=== PATIENT | female | born 1955 | race Caucasian/White ===

== ENCOUNTER 2019-10-10 09:53 | Emergency (ER) | payer MEDICARE, OTHER ==
[~2019-10-10] VITALS: Ht 170.2 cm; Wt 77.2 kg
[~2019-10-10 09:53] MED LIST: ATOR10TA60 PO; CETI10TA24 PO; FLUT9.9S NS; LISI-338 PO; LOTE5DRO2 EACHEYE; MELO7.5T5 PO; PRED20TA PO
[2019-10-10 10:15] VITALS: BP 174/95
[2019-10-10] MEDS ORDERED: ONDANSETRON PF 4 MG/2 ML VIAL. IM ONE (10:15)
--- NOTE | 2019-10-10 10:20 | PHYS DOC ---
Past History Past Medical History: Hypertension Past Surgical History: Tonsillectomy Smoking: Non-smoker Alcohol Use: None Drug Use: None Adult General Chief Complaint Chief Complaint: NAUSEA/VOMITING/DIARRHEA HPI HPI Patient is a 63-year-old female who presents for nausea. Onset was 2 weeks ago and has been fluctuant since onset. No inciting trauma or event. Nothing known makes it better or worse. Patient denies any pain. Patient reports stomach feeling uneasy and nauseous but denies any episodes of vomit or diarrhea in the past 7 days. Patient reports she is in the middle of an extensive outpatient work-up for headaches and vision changes, she is pending MRI on Saturday and this makes her nervous. She is not having any headaches or vision changes currently but is anxious to find out what has been going on with her. She was recently prescribed Phenergan with moderate relief in symptoms, she has been taking these as needed for nausea with moderate relief but today, after taking a Phenergan this morning, remained nauseous and anxious about her health status prompting her to seek care at our ED today Review of Systems Review of Systems Fourteen body systems of review of systems have been reviewed. See HPI for pertinent positives and negative responses, other martinez all other systems are negative, non-pertinent or non-contributory Positive nausea, recent history of vision changes and headache Denies febrile illness, URI-like symptoms, cough, shortness of breath, abdominal pain, vomiting or diarrhea, urinary symptoms, changes in bladder or bowel function, recent antibiotic use Allergies Allergies Allergies Coded Allergies Type Severity Reaction Last Updated Verified No Known Drug Allergies 05/06/15 No Physical Exam Physical Exam Constitutional: Well developed, well nourished, mild distress, non-toxic appearance. [] HENT: Normocephalic, atraumatic, bilateral external ears normal, oropharynx femi st, no oral exudates, nose normal. [] Eyes: PERRLA, EOMI, conjunctiva normal, no discharge. [] Neck: Normal range of motion, no tenderness, supple, no stridor. [] Cardiovascular:Heart rate regular rhythm, no murmur [] Lungs & Thorax: Bilateral breath sounds clear to auscultation [] Abdomen: Bowel sounds normal, soft, no tenderness, no masses, no pulsatile masses. No guarding, rebound, peritoneal signs. Nonacute abdomen [] Skin: Warm, dry, no erythema, no rash. [] Back: No tenderness, no CVA tenderness. [] Extremities: No tenderness, no cyanosis, no clubbing, ROM intact, no edema. [] Neurologic: Alert and oriented X 3, normal motor function, normal sensory function, no focal deficits noted. [] Psychologic: Affect normal, judgement normal, mood normal. [] EKG EKG EKG obtained and interpreted by myself at 1045 hrs. as normal sinus rhythm at 70 bpm, unremarkable intervals, left axis deviation, no acute ischemic findings, no STEMI Radiology/Procedures Radiology/Procedures [] Course & Med Decision Making Course & Med Decision Making Patient seen on immediate ED arrival Hemodynamically stable, comprehensive history and physical exam grossly benign for any emergent conditions No indication for extensive laboratory analysis or imaging, nausea likely secondary to increased anxiety related to recent health events [id number] glucose obtained and unremarkable, EKG obtained and also unremarkable IM Zofran administered with mild symptomatic relief of nausea. Offered patient GI cocktail but she refused due to fear of lidocaine making her GI tract numb ED course discussed with patient at length and joint decision to discharge home with close PCP follow-up this upcoming week. Strict return precautions discussed at length and understood by patient. All questions and concerns addressed Patient knowledgeable that this could be an acute presentation of a more serious underlying condition such as appendicitis and is aware of return precautions as discussed above Patient asked if she could receive medication to calm her nerves prior to MRI on Saturday. She reports being prescribed x1 Ativan prior to her MRI. I declined. I highly recommend her PCP look into starting SSRI or other anti-anxiety medication for patient as I believe this is the sole cause of her visit today Patient discharged home in stable condition with limited prescription of Zofran for as needed use nausea Dragon Disclaimer Dragon Disclaimer This electronic medical record was generated, in whole or in part, using a voice recognition dictation system. Departure Departure: Impression: Primary Impression: Nausea Additional Impression: Anxiety about health Disposition: HOME/RESIDENCE PRIOR TO ADM Condition: STABLE Referrals: FERMIN GEORGES (PCP) Patient Instructions: Nausea, Adult, Ondansetron tablets Additional Instructions: As discussed prior to the ED departure, please call your PCP first thing Saturday morning to schedule follow-up in upcoming 3 to 6 days New prescription for Zofran is intended for as needed use only for nausea. Please discuss getting on longer-term medication with your PCP I anticipate your nausea will improve after more clarity regarding outpatient headache/eye work-up has been obtained. Please discuss additional interventions for your anxiety with your PCP if these issues are still unresolved Scripts Ondansetron Hcl (ZOFRAN) 4 Mg Tablet 1 TAB PO Q8HRS for nausea, #10 TAB Prov: DOMENICO WILLIAMSON DO 10/10/19 Justification of Admission: Justification of Admission: Justification of Admission Dx: N/A Problem Qualifiers DOMENICO WILLIAMSON DO Oct 10, 2019 10:20
[2019-10-10] MEDS ORDERED: ONDA4TAB7 PO (10:51)
[2019-10-10] MEDS ORDERED: LIDO:MAALOX 1:1 20 ML SINGLE DOSE. PO ONE (11:15)
--- NOTE | 2019-10-10 14:41 | EKG ---
[address] [address] Test Date: 2019-10-10 Test Time: 10:41:50 Pat Name: STEPHANIE GUTIÉRREZ Department: Room: Gender: F [employer] Worker: ROCIO : 1955 Requested By: DOMENICO WILLIAMSON Order Number: [id number] Reading MD: Measurements Intervals [place] Rate: 70 P: 34 FL: 150 QRS: -24 QRSD: 80 T: 44 QT: 404 QTc: 439 Interpretive Statements SINUS RHYTHM LEFTWARD AXIS OTHERWISE NORMAL ECG RI6.02 No previous ECG available for comparison
== END 2019-10-10 11:42 | disposition home or self-care (01) ==
LOC: ER 09:53
DX: F41.9 Anxiety disorder, unspecified (principal); R11.0 Nausea; R51 Headache; I10 Essential (primary) hypertension
CPT/HCPCS: 82947; 93005; 96372; 99284; J2405

== ENCOUNTER → 2019-11-25 | Outpatient (CLI) | payer MEDICARE, OTHER ==
[~2019-11-25] MED LIST changes: -CETI10TA24 PO; +CETI10TA74 PO; +ONDA4TAB7 PO
--- NOTE | 2019-11-25 14:07 | RAD ---
EXAM: AP, oblique and lateral views right foot DATE: 11/25/2019 12:00 AM INDICATION: Reason: RIGHT FOOT PAIN / Spl. Instructions: / History: COMPARISON: No Prior FINDINGS/ IMPRESSION: 1. No evidence of acute fracture or dislocation. 2. Mild soft tissue swelling overlying the forefoot. 3. Calcaneal enthesopathy. 4. Pes cavus with calcaneal pitch measuring 36 degrees and Meary's angle measuring approximately 20 degrees. 5. Mild flexion of the lesser toes. Electronically signed by: Oleksandr Carpenter MD (11/25/2019 2:04 PM) [facility]
== END | disposition home or self-care (01) ==
LOC: DXRAD 11:23
PROVIDERS: ATTEND Podiatrist Foot & Ankle Surgery
DX: M77.31 Calcaneal spur, right foot (principal); M21.271 Flexion deformity, right ankle and toes; M79.89 Other specified soft tissue disorders
CPT/HCPCS: 73630

== ENCOUNTER 2019-11-29 09:30 | Emergency (ER) | payer MEDICARE, OTHER ==
[~2019-11-29] VITALS: Ht 170.2 cm; Wt 77.4 kg
--- NOTE | 2019-11-29 09:49 | PHYS DOC ---
Past History Past Medical History: Hypertension, Migraines Past Surgical History: Tonsillectomy Smoking: Non-smoker Alcohol Use: None Drug Use: None General Adult EDM: Chief Complaint: FLANK PAIN HPI: HPI: Patient is a 64-year-old female presents with right-sided abdominal pain that began about 6 AM today. Patient had some nausea but no vomiting. Pain is mild at rest and more severe with palpation. Pain does radiate to the right flank. Pain is described as an ache. Patient denies any vomiting cough shortness of breath or known COVID-19 exposures. Patient denies any dysuria or hematuria. Review of Systems: Review of Systems: Constitutional: Denies fever or chills Eyes: Denies change in visual acuity HENT: Denies nasal congestion or sore throat Respiratory: Denies cough or shortness of breath Cardiovascular: Denies chest pain or edema GI: Complains of abdominal pain, nausea but no vomiting diarrhea or blood in her stools : Denies dysuria Musculoskeletal: Complains of right flank pain but no joint pain Integument: Denies rash Neurologic: Denies headache, focal weakness or sensory changes Endocrine: Denies polyuria or polydipsia Lymphatic: Denies swollen glands Psychiatric: Denies depression or anxiety Heart Score: Risk Factors: Risk Factors: DM, Current or recent (<one month) smoker, HTN, HLP, family history of CAD, obesity. Risk Scores: Score 0 - 3: 2.5% MACE over next 6 weeks - Discharge Home Score 4 - 6: 20.3% MACE over next 6 weeks - Admit for Clinical Observation Score 7 - 10: 72.7% MACE over next 6 weeks - Early Invasive Strategies Current Medications: Current Meds: Current Medications Medications (Trade) Dose Ordered Sig/[facility] Start Time Stop Time Status Last Admin Dose Admin Ketorolac Tromethamine (Toradol 30mg Vial) 15 mg 1X ONCE 11/29/19 09:45 11/29/19 09:46 UNV Ondansetron HCl (Zofran) 4 mg 1X ONCE 11/29/19 09:45 11/29/19 09:46 UNV Sodium Chloride 1,000 ml @ 1,000 mls/hr Q1H 11/29/19 09:44 11/29/19 10:43 UNV Allergies: Allergies: Allergies Coded Allergies Type Severity Reaction Last Updated Verified No Known Drug Allergies 05/06/15 No Physical Exam: PE: Constitutional: Well developed, well nourished, no acute distress, non-toxic appearance. [] HENT: Normocephalic, atraumatic, bilateral external ears normal, no trismus nose normal. [] Eyes: PERRLA, EOMI, conjunctiva normal, no discharge. [] Neck: Normal range of motion, no tenderness, supple, no stridor. [] Cardiovascular:Heart rate regular rhythm, peripheral pulses were intact, cap refill is brisk Lungs & Thorax: Bilateral breath sounds clear, no respiratory distress Abdomen: Bowel sounds normal, soft, mild right-sided tenderness without guarding or rebound no masses, no pulsatile masses. [] Skin: Warm, dry, no erythema, no rash. [] Back: No tenderness, no CVA tenderness. [] Extremities: No tenderness, no cyanosis, no clubbing, ROM intact, no edema. [] Neurologic: Alert and oriented X 3, normal motor function, normal sensory function, no focal deficits noted. [] Psychologic: Affect normal, judgement normal, mood normal. [] Current Patient Data: Labs: Laboratory Tests Test 11/29/19 09:46 11/29/19 09:53 Urine Collection Type Unknown Urine Color Straw Urine Clarity Cloudy Urine pH 7.5 Urine Specific [place] 1.025 Urine Protein Neg Urine Glucose (UA) Neg mg/dL Urine Ketones (Stick) Neg mg/dL Urine Blood Trace Urine Nitrite Neg Urine Bilirubin Neg Urine Urobilinogen Dipstick 0.2 mg/dL Urine Leukocyte Esterase Neg Urine RBC 3-5 /HPF Urine WBC 1-4 /HPF Urine Squamous Epithelial Cells Few /LPF Urine Amorphous Sediment Present /HPF Urine Bacteria Few /HPF Urine Mucus Slight /LPF White Blood Count 11.0 x10^3/uL Red Blood Count 4.75 x10^6/uL Hemoglobin 13.9 g/dL Hematocrit 42.3 % Mean Corpuscular Volume 89 fL Mean Corpuscular Hemoglobin 29 pg Mean Corpuscular Hemoglobin Concent 33 g/dL Red Cell Distribution Width 13.7 % Platelet Count 254 x10^3/uL Neutrophils (%) (Auto) 83 % Lymphocytes (%) (Auto) 12 % Monocytes (%) (Auto) 5 % Eosinophils (%) (Auto) 1 % Basophils (%) (Auto) 1 % Neutrophils # (Auto) 9.1 x10^3uL Lymphocytes # (Auto) 1.3 x10^3/uL Monocytes # (Auto) 0.5 x10^3/uL Eosinophils # (Auto) 0.1 x10^3/uL Basophils # (Auto) 0.1 x10^3/uL Sodium Level 143 mmol/L Potassium Level 3.5 mmol/L Chloride Level 107 mmol/L Carbon Dioxide Level 25 mmol/L Anion Gap 11 Blood Urea Nitrogen 16 mg/dL Creatinine 1.0 mg/dL Estimated GFR (Cockcroft-Gault) 55.5 BUN/Creatinine Ratio 16 Glucose Level 124 mg/dL Calcium Level 9.3 mg/dL Total Bilirubin 0.3 mg/dL Aspartate Amino Transf (AST/SGOT) 33 U/L Alanine Aminotransferase (ALT/SGPT) 49 U/L Alkaline Phosphatase 135 U/L Total Protein 7.7 g/dL Albumin 4.1 g/dL Albumin/Globulin Ratio 1.1 Lipase 111 U/L Current Medications Medications (Trade) Dose Ordered Sig/Yolanda Route PRN Reason Start Time Stop Time Status Last Admin Dose Admin Sodium Chloride 1,000 ml @ 1,000 mls/hr Q1H IV 11/29/19 09:44 11/29/19 10:43 DC 11/29/19 10:05 Ondansetron HCl (Zofran) 4 mg 1X ONCE IVP 11/29/19 09:45 11/29/19 09:52 DC 11/29/19 10:05 Ketorolac Tromethamine (Toradol 30mg Vial) 15 mg 1X ONCE IVP 11/29/19 10:00 11/29/19 10:01 DC 11/29/19 10:06 Vital Signs: Vital Signs Date Time Temp Pulse Resp B/P (MAP) Pulse Ox O2 Delivery O2 Flow Rate FiO2 11/29/19 09:30 98.2 63 16 166/89 (114) 100 Room Air EKG: EKG: [] Radiology/Procedures: Radiology/Procedures: [][address] [address] IMAGING REPORT Signed PATIENT: STEPHANIE GUTIÉRREZ ACCOUNT: [id number] : 1955 LOCATION: ER AGE: 64 SEX: F EXAM STATUS: REG ER ORD. PHYSICIAN: GRACE ZELAYA MD REASON: r abd pain, flank pain PROCEDURE: CT ABDOMEN PELVIS WO CONTRAST EXAM: CT Abdomen and Pelvis without IV contrast INDICATION: r abd pain, flank pain TECHNIQUE: Multi-detector row CT images were acquired from the lung bases through the abdomen and pelvis without the use of IV contrast. Sagittal and coronal images were acquired from the transaxial data. All CT scans performed at this facility utilize dose optimization techniques as appropriate to the exam, including the following: Automated exposure control and adjustment of the mA and/or KV according to patient size (this includes techniques or standardized protocols for targeted exams where dose is indication/reason for exam). ORAL CONTRAST: None COMPARISON: None FINDINGS: The absence of IV contrast limits evaluation of soft tissue pathology. LOWER CHEST: Unremarkable LIVER: Innumerable circumscribed low density lesions throughout the liver, most less than a centimeter in size. Largest measures 1.1 cm in hepatic segment 3 (image 33 of series 2). BILIARY SYSTEM: Gallbladder is unremarkable. Bile ducts are not dilated. PANCREAS: Unremarkable SPLEEN: Unremarkable ADRENALS: Unremarkable KIDNEYS & URETERS: Right hydronephrosis and hydroureter is present related to a distal right ureteral 4 mm stone near the ureterovesical junction. Left kidney and ureter are unremarkable. BLADDER: Empty. REPRODUCTIVE ORGANS: 3.9 cm myometrial mass at the uterine fundus suggesting a leiomyoma. Otherwise unremarkable uterus and ovaries. GASTROINTESTINAL: The stomach, small bowel, and colon are unremarkable. The appendix is normal. MESENTERY/PERITONEUM/RETROPERITONEUM: Unremarkable VASCULAR: Unremarkable LYMPH NODES: No adenopathy OSSEOUS & SOFT TISSUES: Unremarkable IMPRESSION: 1. Right hydronephrosis and hydroureter related to a 4 mm distal right ureteral stone. No other findings to explain right abdominal and flank pain are identified. 2. Patient has incidental numerous low-density lesions throughout the liver, likely benign in etiology, such as may be seen with sarcoidosis. Consider elective follow-up, such as with ultrasound in 3 months. Electronically signed by: Mariposa Jolly MD (11/29/2019 10:26 AM) [facility] DICTATED AND SIGNED BY: MARIPOSA JOLLY MD DATE: 11/29/19 1026 CC: GRACE ZELAYA MD; JOSÉ MANUEL,FERMIN ~ Course & Med Decision Making: Course & Med Decision Making Pertinent Labs and Imaging studies reviewed. (See chart for details) [] 64-year-old female presents with right flank pain. Patient has a 4 mm ureteral stone. On reassessment at 11:05 AM patient states her pain is not significantly changed would like a little bit of pain medicine before she goes. Patient will be placed on antibiotics pain meds nausea meds and Flomax. Discussed with patient her CT findings of her liver and need for outpatient ultrasound in 3 months. Patient will be given a copy of this report. Dragon Disclaimer: Dragon Disclaimer: This electronic medical record was generated, in whole or in part, using a voice recognition dictation system. Departure Departure: Impression: Primary Impression: Right ureteral stone Additional Impressions: Right sided abdominal pain Liver nodule Disposition: 01 HOME/RESIDENCE PRIOR TO ADM Condition: STABLE Referrals: FERMIN GEORGES (PCP) as scheduled to follow up on liver nodules Patient Instructions: Kidney Stones Additional Instructions: EMERGENCY DEPARTMENT GENERAL DISCHARGE INSTRUCTIONS Thank you for coming to the [facility] Emergency Department (ED) today and trusting us with you care. We trust that you had a positivie experience in our Emergency Department. YOUR FOLLOW UP INSTRUCTIONS ARE FOLLOWS: 1. Do you have a private Doctor? If you do not have a private doctir, please ask for a resource list of physicians or clinics that may be able to assist you with follow up care. 2. The Emergency Physicain has interpreted your x-rays. The X-Ray specialist will also review them. If there is a change in the findingd, you will be notified in 48 hours when at all possible. 3. A lab test or culture has been done, your results will be reviewed and you will be notified if you need a change in treatment. ADDITIONAL INSTRUCTIONS AND INFORMATION: 1. Your care today has been supervised by a physician who is specially trained in emergency care. Many problems require more than one evaluation for a complete diagnosis and treatment. We recommend that you schedule your follow up appointment as recommended to ensure complete treatment of you illness or injury. If you are unable to obtain follow up care and continue to have a problem, or if your consition worsens, we recommend that you return to the ED. 2. We are not able to safelymdetermine your condition over the phone nor are we able to give sound medical advice over the phone. For these safety reasons, if you call for medical advice we will ask you to come to the ED for further evaluation. 3. If you have any questions regarding these discharge instructions please call the ED at [phone]. SAFETY INFORMATION: In the interest of safety, wellness, and injury prevention; we encourage you to wear your sealbelt, if you smoke; quite smoking, and we encourage family to use a protective helmet for bicycling and other sporting events that present an increased risk for head injusry. IF YOUR SYMPTOMS WORSEN OR NEW SYMPTOMS DEVELOP, OR YOU HAVE CONCERNS ABOUT YOUR CONDITION; OR IF YOUR CONDITION WORSENS WHILE YOU ARE WAITING FOR YOUR FOLLOW UP APPOINT MENT; EITHER CONTACT YOUR PRIMARY CARE DOCTOR, THE PHYSICIAN WHOSE NAME AND NUMBER YOU WERE GIVEN, OR RETURN TO THE ED IMMEDIATELY. Scripts Cephalexin (KEFLEX) 500 Mg Capsule 500 MG PO Q6HRS for uti prophylaxis for 7 Days, #28 CAP Prov: GRACE ZELAYA MD 11/29/19 Ibuprofen (IBUPROFEN) 600 Mg Tablet 600 MG PO Q8HRS for pain, #30 TAB Prov: GRACE ZELAYA MD 11/29/19 Hydrocodone Bit/Acetaminophen (NORCO 5-325 TABLET) 1 Each Tablet 1 TAB PO PRN Q6HRS PRN for PAIN, #12 TAB 0 Refills Prov: GRACE ZELAYA MD 11/29/19 Ondansetron Hcl (ZOFRAN) 4 Mg Tablet 1 TAB PO Q6HRS for nausea, #12 TAB Prov: GRACE ZELAYA MD 11/29/19 Tamsulosin Hcl (FLOMAX) 0.4 Mg Cap.er.24h 1 CAP PO DAILY for kidney stone, #7 CAP 11 Refills Prov: GRACE ZELAYA MD 11/29/19 Justification of Admission: Justification of Admission: Justification of Admission Dx: N/A GRACE ZELAYA MD Nov 29, 2019 09:49
[2019-11-29] MEDS: IV NORMAL SALINE 1,000ML 1,000 ML IV SCH (10:05)
[2019-11-29] MEDS: ONDANSETRON PF 4 MG/2 ML VIAL. IVP ONE (10:05)
[2019-11-29] MEDS: KETOROLAC 30 MG/ML VIAL. IVP ONE (10:06)
[2019-11-29 10:15] LABS: BASO # 0.1 x10^3/uL (0.0-0.2); BASO % 1 % (0-3); EOS # 0.1 x10^3/uL (0.0-0.7); EOS % 1 % (0-3); HEMATOCRIT 42.3 % (36.0-47.0); HEMOGLOBIN 13.9 g/dL (12.0-15.5); LYMPH # 1.3 x10^3/uL (1.0-4.8); LYMPH % 12 % (24-48); MEAN CORPUSCULAR HEMOGLOBIN 29 pg (25-35); MEAN CORPUSCULAR HGB CONC 33 g/dL (31-37); MEAN CORPUSCULAR VOLUME 89 fL (79-100); MONO # 0.5 x10^3/uL (0.0-1.1); MONO % 5 % (0-9); NEUT # 9.1 x10^3uL (1.8-7.7); NEUT % 83 % (31-73); PLATELET COUNT 254 x10^3/uL (140-400); RED BLOOD COUNT 4.75 x10^6/uL (3.50-5.40); RED CELL DISTRIBUTION WIDTH 13.7 % (11.5-14.5)
[2019-11-29 10:21] LABS: CALCIUM 9.3 mg/dL (8.5-10.1); GFR 55.5; POTASSIUM 3.5 mmol/L (3.5-5.1)
[2019-11-29 10:27] LABS: ALBUMIN 4.1 g/dL (3.4-5.0); ALBUMIN/GLOBULIN RATIO 1.1 (1.0-1.7); TOTAL BILIRUBIN 0.3 mg/dL (0.2-1.0); TOTAL PROTEIN 7.7 g/dL (6.4-8.2)
--- NOTE | 2019-11-29 10:29 | RAD ---
EXAM: CT Abdomen and Pelvis without IV contrast INDICATION: r abd pain, flank pain TECHNIQUE: Multi-detector row CT images were acquired from the lung bases through the abdomen and pelvis without the use of IV contrast. Sagittal and coronal images were acquired from the transaxial data. All CT scans performed at this facility utilize dose optimization techniques as appropriate to the exam, including the following: Automated exposure control and adjustment of the mA and/or KV according to patient size (this includes techniques or standardized protocols for targeted exams where dose is indication/reason for exam). ORAL CONTRAST: None COMPARISON: None FINDINGS: The absence of IV contrast limits evaluation of soft tissue pathology. LOWER CHEST: Unremarkable LIVER: Innumerable circumscribed low density lesions throughout the liver, most less than a centimeter in size. Largest measures 1.1 cm in hepatic segment 3 (image 33 of series 2). BILIARY SYSTEM: Gallbladder is unremarkable. Bile ducts are not dilated. PANCREAS: Unremarkable SPLEEN: Unremarkable ADRENALS: Unremarkable KIDNEYS & URETERS: Right hydronephrosis and hydroureter is present related to a distal right ureteral 4 mm stone near the ureterovesical junction. Left kidney and ureter are unremarkable. BLADDER: Empty. REPRODUCTIVE ORGANS: 3.9 cm myometrial mass at the uterine fundus suggesting a leiomyoma. Otherwise unremarkable uterus and ovaries. GASTROINTESTINAL: The stomach, small bowel, and colon are unremarkable. The appendix is normal. MESENTERY/PERITONEUM/RETROPERITONEUM: Unremarkable VASCULAR: Unremarkable LYMPH NODES: No adenopathy OSSEOUS & SOFT TISSUES: Unremarkable IMPRESSION: 1. Right hydronephrosis and hydroureter related to a 4 mm distal right ureteral stone. No other findings to explain right abdominal and flank pain are identified. 2. Patient has incidental numerous low-density lesions throughout the liver, likely benign in etiology, such as may be seen with sarcoidosis. Consider elective follow-up, such as with ultrasound in 3 months. Electronically signed by: Gerson Jolly MD (11/29/2019 10:26 AM) [facility]
[2019-11-29 10:41] LABS: BILIRUBIN,URINE NEG (NEG); CLARITY,URINE CLOUDY; COLOR,URINE STRAW; GLUCOSE,URINE NEG (NEG)
[2019-11-29 10:42] LABS: AMORPHOUS SEDIMENT,UR PRESENT /HPF; BACTERIA,URINE FEW /HPF (0-FEW); NITRITE,URINE NEG (NEG); SQUAMOUS EPITHELIAL CELL,UR FEW /LPF; UROBILINOGEN,URINE 0.2 mg/dL (0.2 mg/dL)
[2019-11-29] MEDS ORDERED: CEPH-264 PO (11:12)
[2019-11-29] MEDS ORDERED: IBUP600T16 PO (11:12)
[2019-11-29] MEDS ORDERED: HYDR-3165 PO (11:12)
[2019-11-29] MEDS ORDERED: TAMS0.4C97 PO (11:12)
[2019-11-29] MEDS ORDERED: ONDA4TAB7 PO (11:12)
[2019-11-29] MEDS ORDERED: MORPHINE SULFATE 2 MG/ML DISP.SYRIN. ONE (11:26)
[2019-11-29] MEDS: MORPHINE SULFATE 2 MG/ML DISP.SYRIN. IV ONE (11:28)
[2019-11-29 11:29] VITALS: BP 154/74
== END 2019-11-29 11:30 | disposition home or self-care (01) ==
LOC: ER 09:30
DX: N13.2 Hydronephrosis with renal and ureteral calculous obstruction (principal); K76.89 Other specified diseases of liver; I10 Essential (primary) hypertension; G43.909 Migraine, unspecified, not intractable, without status migrainosus
CPT/HCPCS: 36415; 74176; 80053; 81001; 83690; 85025; 96361; 96374; 96375; 99284; J1885; J2270; J2405; J7030

== ENCOUNTER → 2019-12-11 | Outpatient (CLI) | payer MEDICARE, OTHER ==
[2019-11-29 11:29] VITALS: BP 154/74
[~2019-12-11] MED LIST changes: +ASPI-630 PO; +CALC-31 PO; +CEPH-264 PO; +HYDR-3165 PO; +IBUP600T16 PO; +OMEG100021 PO; +TAMS0.4C97 PO
== END | disposition home or self-care (01) ==
LOC: LAB 10:04
PROVIDERS: ATTEND Registered Nurse
DX: Z01.812 Encounter for preprocedural laboratory examination (principal); H26.8 Other specified cataract; Z20.828 Contact with and (suspected) exposure to other viral communicable diseases
CPT/HCPCS: U0003-CS

== ENCOUNTER → 2019-12-15 | Day surgery (SDC) | payer MEDICARE, OTHER ==
[~2019-12-15] MED LIST changes: +ACETAMINOPHEN 325 MG TABLET PO PRN; +BALANCED SALT IRRIG OPHTH SOLN 15 ML BOTTLE. IRR ONE; +CATARACT OPHTH GEL 0.5 ML SYRINGE. OD ONE; +CHONDROIT-SOD-HYALURONATE KIT. OD ONE; +EPINEPHrine AMPULE 0.5 MG in BALANCED SALT IRRIG SOLN PLUS 500 ML IO ONE; +ERYTHROMYCIN 0.5% OPHTH OINTMENT 1GM TUBE. OD ONE; +HYALURONIDASE 75UNITS in LIDOCAINE 2% PF OPHTH 10 ML SYRINGE. OD ONE; +IPRATRPIUM/ALBUTEROL 0.5/2.5MG 3 ML NEBU. NEB PRN; +IV RINGERS SOLUTION,LACTATED 1,000 ML IV SCH; +KETOROLAC TROMETHAMINE 0.5% OPHTH SOLUTION BOTTLE. OD SCH; +KETOROLAC TROMETHAMINE 0.5% OPHTH SOLUTION BOTTLE. ONE; +MIDAZOLAM HCL PF 2 MG/2 ML VIAL. IV ONE; +MOXIFLOXACIN 0.5% OPHTH SOLUTION 3ML BOTTLE. OD SCH; +ONDANSETRON PF 4 MG/2 ML VIAL. IV PRN; +POVIDONE-IODINE 5% OPHTH SOLUTION 30ML BOTTLE. OD ONE; +PROPOFOL 10,000 MCG/ML (20ML) VIAL IV ONE; +TETRACAINE 0.5% OPHTH SOLUTION 4ML BOTTLE. OD ONE; +TETRACAINE 0.5% OPHTH SOLUTION 4ML BOTTLE. OU ONE; +prednisoLONE ACETATE 1% OPHTH SUSPENSION 5ML BOTTLE. OD SCH; +prednisoLONE ACETATE 1% OPHTH SUSPENSION 5ML BOTTLE. ONE
[2019-12-15] MEDS: MOXIFLOXACIN 0.5% OPHTH SOLUTION 3ML BOTTLE. OD SCH ×3 (07:24→07:35)
--- NOTE | 2019-12-15 08:11 | PDOC4 ---
Phaco IOL/LRI OD Date of Procedure: Dec 15, 2019 Preoperative Diagnosis: 1. Senile cataract, OD 2. Astigmatism, OD Postoperative Diagnosis: 1. Senile cataract, OD 2. Astigmatism, OD Anesthesia: Anesthesia: Local with monitored anesthesia care Surgeon: Rula Cheung D.O. Procedure: Phacoemulsification with intraocular lens implant, OD Paired Limbal Relaxing Incisions, degrees at OD degree meridian Findings: 1. Senile Cataract, OD 2. Astigmatism, OD Indications: Worsening vision interfering with patient's lifestyle Narrative: Narrative: The risks, complications and alternatives, including but not limited to loss of vision, infection, bleeding, swelling, anesthetic reaction, capsule rupture with vitreous loss, etc., were discussed with the patient. Topical anesthetic was instilled in the eye. The patient was placed in the seated position and the cornea was marked at the 3, 6 and 9 o'clock position. A peribulbar injection was given with a 50/50 mixture of lidocaine and Marcaine. A [place] Balloon was placed for 10 minutes. The patient was transferred to the main operating room and was prepped and draped in the usual sterile fashion and positioned under the microscope. A lid speculum was placed. Paired limbal relaxing incisions were made at the appropriate corneal meridian. A temporal clear corneal incision was made with a keratome. Viscoelastic was injected into the eye. A side port incisi on was made. A continuous tear capsulorrhexis was performed, then hydrodissection was accomplished with balanced salt solution. The phacoemulsification needle was placed in the eye and the nucleus was emulsified. The remaining cortical material was removed with the irrigation and the aspiration apparatus. The capsule was polished as needed. The posterior capsule was noted to be clean and intact. Viscoelastic was injected into the eye inflating the capsular bag. An intraocular lens was injected into the eye, unfolding as desired and was positioned in the capsular bag. The viscoelastic was aspirated from the eye. The wound edges were hydrated with balanced salt solution and there were no leaks. Viscoelastic was injected over the limbal incisions. Antibiotic and steroid were placed on the eye. The lid speculum was removed and a patch and Roldan shield applied. There were no complications and the patient was taken to the PACU in good condition. RULA CHEUNG DO Dec 15, 2019 08:11
[2019-12-15 08:12] VITALS: BP 126/71
== END | disposition home or self-care (01) ==
LOC: SURG 06:26
PROVIDERS: ATTEND Ophthalmology
DX: H25.11 Age-related nuclear cataract, right eye (principal); H52.201 Unspecified astigmatism, right eye; J30.2 Other seasonal allergic rhinitis; G43.909 Migraine, unspecified, not intractable, without status migrainosus; I10 Essential (primary) hypertension; M19.90 Unspecified osteoarthritis, unspecified site; Z79.899 Other long term (current) drug therapy; Z98.890 Other specified postprocedural states; Z87.442 Personal history of urinary calculi; Z79.82 Long term (current) use of aspirin
CPT/HCPCS: 66984; J0171; J2704; V2632

== ENCOUNTER → 2019-12-17 | Outpatient (CLI) | payer MEDICARE, OTHER ==
[2019-12-15 08:12] VITALS: BP 126/71
[~2019-12-17] MED LIST changes: -ACETAMINOPHEN 325 MG TABLET PO PRN; -BALANCED SALT IRRIG OPHTH SOLN 15 ML BOTTLE. IRR ONE; -CATARACT OPHTH GEL 0.5 ML SYRINGE. OD ONE; -CHONDROIT-SOD-HYALURONATE KIT. OD ONE; -EPINEPHrine AMPULE 0.5 MG in BALANCED SALT IRRIG SOLN PLUS 500 ML IO ONE; -ERYTHROMYCIN 0.5% OPHTH OINTMENT 1GM TUBE. OD ONE; -HYALURONIDASE 75UNITS in LIDOCAINE 2% PF OPHTH 10 ML SYRINGE. OD ONE; -IPRATRPIUM/ALBUTEROL 0.5/2.5MG 3 ML NEBU. NEB PRN; -IV RINGERS SOLUTION,LACTATED 1,000 ML IV SCH; -KETOROLAC TROMETHAMINE 0.5% OPHTH SOLUTION BOTTLE. OD SCH; -KETOROLAC TROMETHAMINE 0.5% OPHTH SOLUTION BOTTLE. ONE; -MIDAZOLAM HCL PF 2 MG/2 ML VIAL. IV ONE; -MOXIFLOXACIN 0.5% OPHTH SOLUTION 3ML BOTTLE. OD SCH; -ONDANSETRON PF 4 MG/2 ML VIAL. IV PRN; -POVIDONE-IODINE 5% OPHTH SOLUTION 30ML BOTTLE. OD ONE; -PROPOFOL 10,000 MCG/ML (20ML) VIAL IV ONE; -TETRACAINE 0.5% OPHTH SOLUTION 4ML BOTTLE. OD ONE; -TETRACAINE 0.5% OPHTH SOLUTION 4ML BOTTLE. OU ONE; -prednisoLONE ACETATE 1% OPHTH SUSPENSION 5ML BOTTLE. OD SCH; -prednisoLONE ACETATE 1% OPHTH SUSPENSION 5ML BOTTLE. ONE
--- NOTE | 2019-12-17 14:48 | RAD ---
Bone densitometry. Clinical history: Postmenopausal white female for screening. Lumbar spine: L1-L4. The technical acquisition is adequate. The bone mineral density across the aggregate of L1-L4 is 1.153 gm/cm2. This corresponds to a T-score of -0.2 which is consistent with normal bone mineral density. At this bone density level, fracture risk is normal. Hip: Right. The technical acquisition is adequate. The standardized bone mineral density at the the right total femur is 699 gm/cm2. This corresponds to a T-score of -2.1 which is consistent with low bone mineral density. At this bone density level, fracture risk is increased. Impression: 1. Decreased bone mineral density of the right femur. Note: Definitions established by the World Health Organization: 1. Normal: T-score is -1.0 or above. 2. Osteopenia: T-score is between -1.0 and -2.5. 3. Osteoporosis: T-score is -2.5 or below. Electronically signed by: Rei Yan MD (12/17/2019 2:45 PM) [id number]
== END ==
LOC: DXRAD 09:44
PROVIDERS: ATTEND Family Medicine
DX: Z78.0 Asymptomatic menopausal state (principal); M81.8 Other osteoporosis without current pathological fracture
CPT/HCPCS: 77080

== ENCOUNTER 2020-01-06 08:44 | Emergency (ER) | payer MEDICARE, OTHER ==
[~2020-01-06] VITALS: Ht 170.2 cm; Wt 76.1 kg
[2020-01-06] MEDS ORDERED: KETOROLAC 30 MG/ML VIAL. IVP ONE (09:45)
[2020-01-06 10:15] LABS: BASO % 1 % (0-3); EOS # 0.1 x10^3/uL (0.0-0.7); EOS % 2 % (0-3); HEMATOCRIT 41.8 % (36.0-47.0); HEMOGLOBIN 13.5 g/dL (12.0-15.5); LYMPH % 23 % (24-48); MEAN CORPUSCULAR HEMOGLOBIN 29 pg (25-35); MEAN CORPUSCULAR HGB CONC 32 g/dL (31-37); MEAN CORPUSCULAR VOLUME 89 fL (79-100); MONO # 0.7 x10^3/uL (0.0-1.1); MONO % 8 % (0-9); NEUT # 5.8 x10^3uL (1.8-7.7); NEUT % 67 % (31-73); PLATELET COUNT 222 x10^3/uL (140-400); RED BLOOD COUNT 4.68 x10^6/uL (3.50-5.40); RED CELL DISTRIBUTION WIDTH 13.8 % (11.5-14.5); WHITE BLOOD COUNT 8.6 x10^3/uL (4.0-11.0)
[2020-01-06 10:18] LABS: CALCIUM 9.7 mg/dL (8.5-10.1); CREATININE 1.1 mg/dL (0.6-1.0); GFR 49.7; POTASSIUM 3.1 mmol/L (3.5-5.1)
[2020-01-06 10:22] LABS: ALBUMIN 4.2 g/dL (3.4-5.0); ALBUMIN/GLOBULIN RATIO 1.2 (1.0-1.7); TOTAL BILIRUBIN 0.4 mg/dL (0.2-1.0); TOTAL PROTEIN 7.7 g/dL (6.4-8.2)
--- NOTE | 2020-01-06 10:30 | PHYS DOC ---
Past History Past Medical History: Kidney Stones Past Surgical History: Tonsillectomy Smoking: Non-smoker Alcohol Use: None Drug Use: None Adult General Chief Complaint Chief Complaint: ABDOMINAL PAIN HPI HPI Patient is a 64-year-old female who presents with suprapubic pain. Patient was recently seen at our facility approximately 1 month ago and diagnosed with right-sided 4 mm kidney stone and discharged home on appropriate therapy. Patient followed up with primary care physician and continued to have symptomatic improvement throughout outpatient follow-up. Patient was recently in [place] for the past 10 days, reports approximately care home through her vacation developing nonspecific suprapubic pain without any vaginal discharge/bleeding or urinary symptoms. Patient has taken Tylenol and leftover hydrocodone as needed with improvement of pain. Denies any fever, chills, falls, chest pain, shortness of breath, admits abdominal pain with nausea but no vomiting or diarrhea. Review of Systems Review of Systems Fourteen body systems of review of systems have been reviewed. See HPI for pertinent positives and negative responses, other martinez all other systems are negative, non-pertinent or non-contributory Current Medications Current Medications Current Medications Medications (Trade) Dose Ordered Sig/Yolanda Start Time Stop Time Status Last Admin Dose Admin Ketorolac Tromethamine (Toradol 30mg Vial) 30 mg 1X ONCE 01/06/20 09:45 01/06/20 09:58 DC 01/06/20 10:16 30 MG Allergies Allergies Allergies Coded Allergies Type Severity Reaction Last Updated Verified No Known Drug Allergies 01/06/20 No Physical Exam Physical Exam Constitutional: Well developed, well nourished, moderate distress due to pain, non-toxic appearance. HENT: Normocephalic, atraumatic, bilateral external ears normal, oropharynx moist, no oral exudates, nose normal. Eyes: PERRLA, EOMI, conjunctiva normal, no discharge. Neck: Normal range of motion, no tenderness, supple, no stridor. Cardiovascular: Heart rate regular, sinus rhythm, no murmurs rubs or gallops Lungs & Thorax: Bilateral breath sounds clear to auscultation Abdomen: Bowel sounds normal, soft, suprapubic and right adnexal tenderness without rebound or guarding, no masses, no pulsatile masses. Nonsurgical abdome n, no peritoneal signs Skin: Warm, dry, no erythema, no rash. Back: No tenderness, no CVA tenderness. Extremities: No tenderness, no cyanosis, no clubbing, ROM intact, no edema. Neurologic: Alert and oriented X 3, grossly normal motor & sensory function, no focal deficits noted. Psychologic: Affect normal, judgement normal, anxious mood Current Patient Data Vital Signs Vital Signs Date Time Temp Pulse Resp B/P (MAP) Pulse Ox O2 Delivery O2 Flow Rate FiO2 01/06/20 10:18 57 16 140/78 (98) 99 Room Air 01/06/20 08:55 98.1 Lab Results Laboratory Tests Test 01/06/20 09:00 White Blood Count 8.6 x10^3/uL (4.0-11.0) Red Blood Count 4.68 x10^6/uL (3.50-5.40) Hemoglobin 13.5 g/dL (12.0-15.5) Hematocrit 41.8 % (36.0-47.0) Mean Corpuscular Volume 89 fL (79-100) Mean Corpuscular Hemoglobin 29 pg (25-35) Mean Corpuscular Hemoglobin Concent 32 g/dL (31-37) Red Cell Distribution Width 13.8 % (11.5-14.5) Platelet Count 222 x10^3/uL (140-400) Neutrophils (%) (Auto) 67 % (31-73) Lymphocytes (%) (Auto) 23 % (24-48) L Monocytes (%) (Auto) 8 % (0-9) Eosinophils (%) (Auto) 2 % (0-3) Basophils (%) (Auto) 1 % (0-3) Neutrophils # (Auto) 5.8 x10^3uL (1.8-7.7) Lymphocytes # (Auto) 2.0 x10^3/uL (1.0-4.8) Monocytes # (Auto) 0.7 x10^3/uL (0.0-1.1) Eosinophils # (Auto) 0.1 x10^3/uL (0.0-0.7) Basophils # (Auto) 0.0 x10^3/uL (0.0-0.2) Sodium Level 143 mmol/L (136-145) Potassium Level 3.1 mmol/L (3.5-5.1) L Chloride Level 105 mmol/L (98-107) Carbon Dioxide Level 26 mmol/L (21-32) Anion Gap 12 (6-14) Blood Urea Nitrogen 17 mg/dL (7-20) Creatinine 1.1 mg/dL (0.6-1.0) H Estimated GFR (Cockcroft-Gault) 49.7 BUN/Creatinine Ratio 15 (6-20) Glucose Level 96 mg/dL (70-99) Calcium Level 9.7 mg/dL (8.5-10.1) Total Bilirubin 0.4 mg/dL (0.2-1.0) Aspartate Amino Transferase (AST) 18 U/L (15-37) Alanine Aminotransferase (ALT) 24 U/L (14-59) Alkaline Phosphatase 103 U/L (46-116) Total Protein 7.7 g/dL (6.4-8.2) Albumin 4.2 g/dL (3.4-5.0) Albumin/Globulin Ratio 1.2 (1.0-1.7) EKG EKG [] Radiology/Procedures Radiology/Procedures PROCEDURE: RENAL COMPLETE BILATERAL Examination: RENAL COMPLETE BILATERAL History known hx 4mm stone rt, abd pain Comparison/Correlation: 11/29/2019 CT abdomen and pelvis without contrast Findings: Renal ultrasound exam was performed. Right kidney measures 10.8 cm x 5 cm x 4.1 cm. Left kidney measures 11.1 cm x 5.7 cm x 5.9 cm. No hydronephrosis. Renal contours are unremarkable. Renal cortical thickness is unremarkable for patient's age. No definite nephrolithiasis. Urinary bladder is mostly decompressed measuring up to 2.7 cm diameter. Abdominal aorta measures 2.4 cm diameter. Inferior vena cava is unremarkable. Impression: No hydronephrosis. Electronically signed by: Emmett Barnes MD (01/06/2020 10:25 AM) [id number] PROCEDURE: US PELVIS W/TV Pelvis ultrasound INDICATION: Pelvic pain. Known fibroid COMPARISON: CT pelvis 11/29/19 TECHNIQUE: Grayscale and color doppler ultrasound of the pelvis was performed. FINDINGS: Uterus measures 8.7 x 6.0 x 5.0 cm and contains a 4.5 x4.2 x 4.0 cm round vascular mass that obscures the endometrial stripe. At the low uterine segment, the endometrium measures 6mm. Ovaries not visualized due to bowel gas. No pelvic free fluid or adnexal mass seen. IMPRESSION: 1. 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 2. Ovaries not well seen due to bowel gas. Unable to assess for ovarian torsion on this examination. Consider close follow-up if clinically warranted. Electronically signed by: Gerson Jolly MD (01/06/2020 11:59 AM) [id number] Heart Score Risk Factors: Risk Factors: DM, Current or recent (<one month) smoker, HTN, HLP, family history of CAD, obesity. Risk Scores: Risk Factors: DM, Current or recent (<one month) smoker, HTN, HLP, family history of CAD, obesity. Course & Med Decision Making Course & Med Decision Making Pertinent Labs and Imaging studies reviewed. (See chart for details) Discussed likely diagnoses of bowel gas versus residual kidney stone not picked up on ultrasound versus fibroadenoma Dr. Arenas, [facility] at [facility] contacted regarding case and she to agreed with decision for conservative management with as needed pain control and close outpatient follow-up with [facility] for repeat evaluation I discussed role of supportive care. I discussed role of continued Tylenol and/or Motrin use for pain. I advised patient start MiraLAX daily to aid in constipation and gas retention. Patient aware of need of repeat examination in outpatient setting with primary care physician and likely [facility]. Patient to be seen within upcoming 7 days after discharge, I feel this is appropriate Strict return precautions discussed with good understanding by patient, all questions and concerns addressed prior to ER departure in stable condition Dragon Disclaimer Dragon Disclaimer This electronic medical record was generated, in whole or in part, using a voice recognition dictation system. Departure Departure: Impression: Primary Impression: Adnexal pain Additional Impressions: Constipation Kidney stone on right side Disposition: 01 DC HOME SELF CARE/HOMELESS Condition: STABLE Referrals: FERMIN GEORGES (PCP) Patient Instructions: Abdominal Pain (Nonspecific) Additional Instructions: However, some abdominal problems make take more time to appear. Therefore, it is important for you to watch for any new symptoms or worsening of your current condition. As discussed prior to ER departure, please call your primary care physician to schedule outpatient follow-up within 7 days. You would also benefit from outpatient [facility] follow-up within same timeframe for repeat examination You have been evaluated in the Emergency Department today for abdominal pain. Your evaluation was not suggestive of any emergent condition requiring medical intervention at this time. Please continue to take Tylenol and/or ibuprofen for as needed pain. For severe pain please utilize left over hydrocodone but use this sparingly due to risks of respiratory depression, addiction and other complications from narcotic use. For your constipation and flatulence, please utilize MiraLAX daily Return to the Emergency Department if you experience worsening pain, persistent fevers greater than 100.4, recurrent vomiting, blood in vomit, blood in stool, dark tarry stool, chest pain, difficulty breathing, or any other concerning symptoms. Problem Qualifiers DOMENICO WILLIAMSON DO Jan 06, 2020 10:30
[2020-01-06 11:09] LABS: BACTERIA,URINE FEW /HPF (0-FEW); BILIRUBIN,URINE NEG (NEG); CLARITY,URINE CLEAR; COLOR,URINE YELLOW; GLUCOSE,URINE NEG (NEG); NITRITE,URINE NEG (NEG); RBC,URINE OCC /HPF (0-2); SQUAMOUS EPITHELIAL CELL,UR FEW /LPF; UROBILINOGEN,URINE 0.2 mg/dL (0.2 mg/dL)
[2020-01-06] MEDS ORDERED: MORPHINE SULFATE 4 MG/ML DISP.SYRIN. IV ONE (11:45)
--- NOTE | 2020-01-06 12:02 | RAD ---
Pelvis ultrasound INDICATION: Pelvic pain. Known fibroid COMPARISON: CT pelvis 11/29/19 TECHNIQUE: Grayscale and color doppler ultrasound of the pelvis was performed. FINDINGS: Uterus measures 8.7 x 6.0 x 5.0 cm and contains a 4.5 x4.2 x 4.0 cm round vascular mass that obscures the endometrial stripe. At the low uterine segment, the endometrium measures 6mm. Ovaries not visualized due to bowel gas. No pelvic free fluid or adnexal mass seen. IMPRESSION: 1. 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 2. Ovaries not well seen due to bowel gas. Unable to assess for ovarian torsion on this examination. Consider close follow-up if clinically warranted. Electronically signed by: Gerson Jolly MD (01/06/2020 11:59 AM) [id number]
[2020-01-06 12:25] VITALS: BP 131/74
== END 2020-01-06 12:50 | disposition home or self-care (01) ==
LOC: ER 08:44
DX: N20.0 Calculus of kidney (principal); K59.00 Constipation, unspecified; R10.2 Pelvic and perineal pain; Z87.442 Personal history of urinary calculi
CPT/HCPCS: 36415; 76770; 76830; 76856; 80053; 81001; 85025; 96374; 96375; 99285; J1885; J2270

== ENCOUNTER → 2020-01-19 | Outpatient (CLI) | payer MEDICARE, OTHER ==
[2020-01-06 12:25] VITALS: BP 131/74
--- NOTE | 2020-01-19 08:31 | RAD ---
Examination: Ultrasound abdomen limited HISTORY: History of abdominal pain COMPARISON: None available. FINDINGS: The pancreas is not well-visualized due to bowel gas. The visualized IVC within normal limits of dimension. There is a cystic structure identified in the left lobe of the liver measuring 1.2 cm probably a cyst. The liver length measures 15.7 cm. Heterogeneous appearance of the liver. The common bile duct measures 2.2 mm in transverse dimension. No evidence of gallstones. The gallbladder wall thickness measures 1.9 mm. The right kidney measures 10.2 x 5.4 x 4.0 cm. IMPRESSION: Heterogeneous appearance of the liver probably hepatic steatosis. 1.2 cm cystic structure identified in the left lobe of the liver likely a cyst. Electronically signed by: Juan Francisco Weaver MD (01/19/2020 8:28 AM) [id number]
== END ==
LOC: US 07:41
PROVIDERS: ATTEND Family Medicine
DX: R10.9 Unspecified abdominal pain (principal)
CPT/HCPCS: 76705

== ENCOUNTER → 2021-05-08 | Outpatient (CLI) | payer MEDICARE, OTHER ==
[~2021-05-08] MED LIST changes: +IOHEXOL 240 MG/ML 50ML VIAL. ONE; +IOHEXOL 240 MG/ML 50ML VIAL. PO ONE; +IOHEXOL 300 MG/ML 75 ML VIAL. IV ONE; -LISI-338 PO; +LISI5TAB15 PO
[2021-05-08 11:25] LABS: CREATININE 0.8 mg/dL (0.6-1.0); GFR 71.5
--- NOTE | 2021-05-08 14:46 | RAD ---
Exam Date: 05/08/2021 11:[address] ABDOMEN+PELVIS W Indication: Reason: RIGHT UPPER QUADRANT ABD PAIN CONTRAST ORDERED/ORAL 1050 / Spl. Instructions: NO HX OF SURGERIES XCEPT TUBAL LIGATION / History: . TECHNIQUE: CT examination of the abdomen and pelvis was performed following the administration of or al and nonionic intravenous contrast. One or more of the following dose reduction techniques were ut ilized: *Automated exposure control (AEC) *Adjustment of mA and/or kV according to patient size *Use of iterative reconstruction technique *CT scan done according to ALARA, or ALARA/IMAGE GENTLY COMPARISON: November 29, 2019 FINDINGS: The visualized lung bases are clear. There are multiple too small to characterize hypodensities in the liver, also present on the prior ex am from November 2019. The liver, gallbladder, spleen, pancreas, adrenal glands and kidneys are otherwise normal. Urinary bladder is normal in appearance. Diverticulosis coli is seen without bowel obstruction or inflammation. The appendix is normal. Mild atherosclerotic calcifications are seen. No lymphadenopathy or ascites is seen. Degenerative changes are seen in the spine. IMPRESSION: No evidence of acute intra-abdominal pathology. Diverticulosis coli noted without bowel inflammation or obstruction. Electronically signed by: Gian Meng MD (05/08/2021 2:43 PM) [id number]
== END ==
LOC: CT 10:30
PROVIDERS: ATTEND Internal Medicine
DX: K57.30 Diverticulosis of large intestine without perforation or abscess without bleeding (principal); K76.89 Other specified diseases of liver; I70.90 Unspecified atherosclerosis; M47.819 Spondylosis without myelopathy or radiculopathy, site unspecified
CPT/HCPCS: 36415; 74177; 82565; 84520; Q9966; Q9967

== ENCOUNTER → 2021-05-16 | Outpatient (CLI) | payer MEDICARE, OTHER ==
[~2021-05-16] MED LIST changes: -IOHEXOL 240 MG/ML 50ML VIAL. ONE; -IOHEXOL 240 MG/ML 50ML VIAL. PO ONE; -IOHEXOL 300 MG/ML 75 ML VIAL. IV ONE
--- NOTE | 2021-05-16 08:47 | RAD ---
Right upper quadrant ultrasound 05/16/2021 7:59 AM Clinical History: Right upper quadrant pain Technique: Ultrasound examination of the right upper quadrant was performed, and multiple static darshana ges were submitted for review. Comparison: CT the abdomen and pelvis every 2021 Findings: The pancreas is partially visualized. Visualized portions of the pancreas are unremarkable. Visualize d portions of aorta and IVC are unremarkable. The liver is heterogenous in echotexture which is nonspecific. No focal hepatic lesions are identifie d on today's exam. Liver is normal in size measuring 15 cm longitudinally. No intrahepatic biliary di latation is seen. The portal vein demonstrates flow in the normal direction. The gallbladder demonstrates no evidence of wall thickening, stones, or sludge. The right kidney is normal in appearance measuring 10 cm in length. The common bile duct is nondilated measuring 3 mm in diameter. IMPRESSION: Nonspecific mildly heterogenous appearance of the liver. Prior CT scan demonstrates innum erable low-density lesions in the liver. Findings may represent multiple biliary hamartomas (otherwi se known as von Meyenburg complexes, multiple bile duct hamartomas, or biliary microhamartomas) whic h could explain this heterogeneity. Caroli's disease is a secondary consideration. A follow-up abdomi nal MRI may be helpful for more complete characterization. Electronically signed by: Douglas Pham MD (05/16/2021 8:45 AM) [id number]
== END ==
LOC: US 07:51
PROVIDERS: ATTEND Internal Medicine
DX: R10.11 Right upper quadrant pain (principal)
CPT/HCPCS: 76705